=== PATIENT | female | born 1995 | race Caucasian/White ===

== ENCOUNTER 2018-01-03 18:19 | Emergency (ER) | payer OTHER ==
--- NOTE | 2018-01-03 19:55 | UC ---
Abdominal Pain Female HPI - HPI Summary HPI Summary: left lower abdomen and back pain, no urinary symptoms denies, nausea, vomiting, diarrhea and fever-never had similar pain, pain kept her in bed all day - History of Current Complaint Chief Complaint: UCGeneralIllness Stated Complaint: LEFT SIDE/BACK PAIN Time Seen by Provider: 01/03/18 19:51 Hx Obtained From: Patient Hx Last Menstrual Period: 12/17/17 ?: No Onset/Duration: Sudden Onset, Still Present Timing: Constant Severity Initially: Moderate Severity Currently: Moderate Pain Intensity: 6 Pain Scale Used: 0-10 Numeric Location: Discrete At: LLQ Radiates: Yes Radiates to: Back Character: Aching, Cramping Aggravating Factor(s): Nothing Alleviating Factor(s): Nothing Associated Signs and Symptoms: Positive: Decreased Appetite Allergies/Adverse Reactions: Allergies Allergy/AdvReac Type Severity Reaction Status Date / Time No Known Allergies Allergy Verified 01/03/18 19:22 Home Medications: Home Medications Ibuprofen TAB* [Advil TAB*] 200 mg PO Q6H PRN 01/03/18 [History Confirmed ] PMH/Surg Hx/FS Hx/Imm Hx Previously Healthy: No GI/ History: Other Other GI/ History: "IBS TYPE SYMPTOMS" - Surgical History Surgical History: None - Family History Known Family History: Negative: Diabetes - Social History Occupation: Student Lives: Dormitory/Roommates Alcohol Use: Occasionally Substance Use Type: None Smoking Status (MU): Never Smoked Tobacco Review of Systems Constitutional: Negative Skin: Negative Eyes: Negative ENT: Negative Respiratory: Negative Cardiovascular: Negative Gastrointestinal: Abdominal Pain Genitourinary: Negative Motor: Negative Neurovascular: Negative Musculoskeletal: Negative Neurological: Negative Psychological: Negative Is Patient Immunocompromised?: No All Other Systems Reviewed And Are Negative: Yes Physical Exam Triage Information Reviewed: Yes Appearance: Well-Nourished, Ill-Appearing, Pain Distress Vital Signs: Initial Vital Signs Temp 98.7 F 01/03/18 19:17 Pulse 68 01/03/18 19:17 Resp 16 01/03/18 19:17 BP 120/68 01/03/18 19:17 Pulse Ox 100 01/03/18 19:17 Vital Signs Reviewed: Yes Eye Exam: Normal Eyes: Positive: Conjunctiva Clear ENT Exam: Normal ENT: Positive: Normal ENT inspection, Hearing grossly normal. Negative: Nasal congestion, Nasal drainage, Tonsillar swelling, Tonsillar exudate, Trismus, Muffled voice, Hoarse voice, Dental tenderness, Sinus tenderness Dental Exam: Normal Neck exam: Normal Neck: Positive: Supple, Nontender, No Lymphadenopathy Respiratory Exam: Normal Respiratory: Positive: Chest non-tender, Lungs clear, Normal breath sounds, No respiratory distress, No accessory muscle use Cardiovascular Exam: Normal Cardiovascular: Positive: RRR, No Murmur, Pulses Normal, Brisk Capillary Refill Abdominal Exam: Other Abdomen Description: Positive: No Organomegaly, Soft, CVA Tenderness (L), Other : - pain left lower side of abdomen. Negative: CVA Tenderness (R), Distended, Guarding, Hernia @, Hepatomegaly, McBurney's Point Tenderness, Peritoneal Signs , Pulsatile Mass, Splenomegaly Bowel Sounds: Positive: Present Musculoskeletal Exam: Normal Musculoskeletal: Positive: Strength Intact Neurological Exam: Normal Neurological: Positive: Alert Psychological Exam: Normal Skin Exam: Normal Diagnostics - Laboratory Diagnostic Studies Completed/Ordered: UA-upreg (-) Abd Pain Female Course/Dx - Course Course Of Treatment: npo transfer to [facility] via car with friend driving for further evaluation of abdomen pain - Differential Dx/Diagnosis Provider Diagnoses: Acute LLQ Pain - Physician Notification/Consults Discussed Care of Patient With: Franck Collins Time Discussed With Above Provider: 20:10 Instructed by Provider To: Transfer Discharge - Discharge Plan Condition: Stable Disposition: OTHER Discharge Disposition Comment: to [facility] by private car Patient Education Materials: Acute Abdominal Pain (ED) Referrals: Non Staff,Doctor [Primary Care Provider] - Additional Instructions: Nothing to eat or drink! Please report directly to the emergency department for further evaluation of abdomen pain
== END 2018-01-03 20:14 ==
LOC: UCCORT 18:19
DX: R10.32 Left lower quadrant pain (principal); M54.9 Dorsalgia, unspecified; Z32.02 Encounter for pregnancy test, result negative
CPT/HCPCS: 81003; 84702; 99211; G0463

== ENCOUNTER → 2018-09-03 10:56 | Emergency (ER) | payer OTHER ==
--- NOTE | 2018-09-05 12:48 | UC ---
Discharge - Sign-Out/Discharge Documenting (check all that apply): Post-Discharge Follow Up All imaging exams completed and their final reports reviewed: No Studies - Discharge Plan Disposition: LEFT WITHOUT BEING SEEN Referrals: Non Staff,Doctor [Primary Care Provider] - - Billing Disposition and Condition Disposition: Left Without Being Seen
== END | disposition left against medical advice (07) ==
LOC: UCCORT 10:56
DX: J02.9 Acute pharyngitis, unspecified (principal); H93.93 Unspecified disorder of ear, bilateral; Z53.21 Procedure and treatment not carried out due to patient leaving prior to being seen by health care provider

== ENCOUNTER 2019-03-12 10:32 | Emergency (ER) | payer OTHER ==
--- NOTE | 2019-03-12 10:55 | UC ---
FLU HPI - HPI Summary HPI Summary: Patient returned from the [facility] on February 15, 2019 after being [place] on [place]. Over the past 2 days she has developed flulike symptoms with fever, chills, body aches, no vomiting or diarrhea. - History of Current Complaint Stated Complaint: SORE THROAT, COUGH Time Seen by Provider: 03/12/19 10:54 Hx Obtained From: Patient Hx Last Menstrual Period: 12/17/17 ?: No Onset/Duration: Gradual Onset Severity Currently: Moderate Severity Initially: Moderate Associated Signs & Symptoms: Positive: Fever, Myalgia, Cough, Sore Throat, Nasal Congestion - Allergy/Home Medications Allergies/Adverse Reactions: Allergies Allergy/AdvReac Type Severity Reaction Status Date / Time No Known Allergies Allergy Verified 03/12/19 11:01 Home Medications: Home Medications Acetaminophen [Extra Strength Non-Aspirin] 1,000 mg PO Q6H PRN 03/12/19 [ History Confirmed 03/12/19] PMH/Surg Hx/FS Hx/Imm Hx Previously Healthy: Yes - Surgical History Surgical History: None - Family History Known Family History: Negative: Diabetes - Social History Occupation: Student Lives: Dormitory/Roommates Alcohol Use: Occasionally Substance Use Type: None Smoking Status (MU): Never Smoked Tobacco Review of Systems All Other Systems Reviewed And Are Negative: Yes Constitutional: Positive: Fever, Chills ENT: Positive: Sore Throat, Nasal Discharge, Sinus Congestion Respiratory: Positive: Cough - Dry nonproductive cough Musculoskeletal: Positive: Myalgia Is Patient Immunocompromised?: No Physical Exam Triage Information Reviewed: Yes Appearance: Well-Appearing, No Pain Distress, Well-Nourished Vital Signs Reviewed: Yes Eye Exam: Normal ENT: Positive: Pharyngeal erythema - Mild erythema tonsils, Nasal congestion, TMs normal, Uvula midline. Negative: Trismus Neck exam: Normal Neck: Positive: Supple, Nontender, No Lymphadenopathy Respiratory: Positive: Chest non-tender, Lungs clear, Normal breath sounds, No respiratory distress, No accessory muscle use Cardiovascular: Positive: RRR, No Murmur, Pulses Normal, Brisk Capillary Refill Abdomen Description: Positive: Nontender, No Organomegaly, Soft Musculoskeletal Exam: Normal Neurological Exam: Normal Psychological Exam: Normal Skin Exam: Normal Flu Course/Dx - Course Course Of Treatment: She has been comfortable here. Rapid flu test and rapid strep test was negative. I believe this is a viral illness and probably not associated with her trip to the [facility]. - Differential Dx/Diagnosis Provider Diagnosis: URI (upper respiratory infection) Discharge - Sign-Out/Discharge Documenting (check all that apply): Patient Departure All imaging exams completed and their final reports reviewed: No Studies - Discharge Plan Condition: Fair Disposition: HOME Patient Education Materials: Viral Syndrome (ED) Forms: *School Release Referrals: Non Staff,Doctor [Primary Care Provider] - [facility] [[employer], [employer], OTHER] - Additional Instructions: Increase fluids, rest, Tylenol every 4 hours for fever or Motrin every 6-8 hours for fever. Definite follow-up with the [facility] at [facility] if no improvement by Monday. - Billing Disposition and Condition Condition: FAIR Disposition: Home - Attestation Statements Provider Attestation: I was available for consult. This patient was seen by the REBECCA. The patient was not presented to, seen by, or examined by me. -Stacey
[2019-03-12 11:01] VITALS: BP 111/88
[2019-03-12 11:37] LABS: Influenza A Molecular NEGATIVE (Negative); Influenza B Molecular NEGATIVE (Negative)
== END 2019-03-12 12:02 | disposition home or self-care (01) ==
LOC: UCCORT 10:32
DX: J06.9 Acute upper respiratory infection, unspecified (principal)
CPT/HCPCS: 87651; 99211; G0463